=== PATIENT | male | born 1960 | race Caucasian/White ===

== ENCOUNTER 2018-05-04 09:57 | Outpatient (CLI) | payer BC, OTHER ==
[~2018-05-04 09:57] MED LIST: KEPPRA500 M3 ORAL; TYLENOL650 MG/20. ORAL
[2018-05-04 10:32] LABS: CREATININE 1.6 MG/DL (0.55-1.30)
--- NOTE | 2018-05-04 15:21 | Diagnostic Imaging Report ---
Indication: Nasal obstruction, vocal cord mass Technique: Coronal T2 fat saturated, coronal T1 FSE, sagittal T2 fat saturated, axial T1 FSE, axial T2 fat-saturated, axial STIR, pre and postcontrast axial T1 fat saturated, postcontrast coronal T1 fat saturated images obtained through the sinuses and upper neck Comparison: Reference made to brain MRI, neck MRA dated 02/10/2014 Findings: There is minimal mucosal thickening of the left maxillary sinus. The sinuses are otherwise clear. There is mild mucosal prominence of the turbinates, but no definite nasal fossa mass demonstrated. The nasal septum demonstrates bilateral symmetric mucosal thickening but no discrete nasal septal mass demonstrated. There is minimal sigmoid deviation of the upper nasal septum and slight leftward deviation of the anterior nasal septum. The nasopharynx, oropharynx, hypopharynx appear unremarkable. No definite vocal cord abnormality demonstrated. No cervical mass or adenopathy. Unusual neck vein varicosities are seen bilaterally in the neck, including prominent veins lateral to the spinal canal at the C2 level bilaterally. The internal jugular veins appear to be patent although questionably slightly narrow as they exit the skull base, particularly that on the left. The included intracranial structures demonstrate encephalomalacia of the left anterior temporal lobe, extending into the basal ganglia. This is also described on a prior MRI of 02/10/2014. There is also encephalomalacia within the right basal ganglia region, also previously reported. Impression: Mucosal thickening of the nasal septum and turbinates. No definite nasal mass or vocal cord mass demonstrated. Unusual neck pain varicosities bilaterally, without definite evidence of jugular venous obstruction. Significance/etiology uncertain. There is questionable narrowing of the internal jugular veins as they exit the skull base, or this could indicate central venous obstruction lower in the chest. Correlate with any clinical history of prior central venous instrumentation Chronic bilateral cerebral encephalomalacia, consistent with old infarcts, also reported on prior MRI of 02/10/2014 Findings discussed by phone with Dr. Lancaster at the time of interpretation
== END 2018-05-04 11:57 | disposition home or self-care (01) ==
LOC: CAT 09:57
DX: D49.2 Neoplasm of unspecified behavior of bone, soft tissue, and skin (principal); J31.0 Chronic rhinitis; M54.2 Cervicalgia; G93.89 Other specified disorders of brain
CPT/HCPCS: 36415; 70543; 82565; 84520; A9585